=== PATIENT | male | born 1995 ===

== ENCOUNTER → 2016-07-10 | Outpatient (CLI) | payer OTHER, BC ==
--- NOTE | 2016-07-10 16:26 | US ---
Ultrasound left axilla 1557 hours. History: Palpable lump left axillary region. Rule out mass or lymphadenopathy. Findings: Ultrasound of the left axilla was performed by the technologist and by myself. The area of palpable concern corresponds with muscle fibers. Deep to this is the humeral head which causes some b ulging of the overlying muscle with the arm abducted over the head. The patient reports that this is specifically the area of concern. When compared to the right side, this is symmetric in appearance. Additional evaluation of the left axilla demonstrates a normal benign-appearing lymph node adjacent t o the axillary vessels. No lymphadenopathy is appreciated. Impression: 1. The palpable lump in the left axilla corresponds with underlying musculature that is symmetric to the right side without evidence of significant mass. 2. Benign-appearing lymph node in the left axilla adjacent to the axillary vessels. Clinical followup recommended. The results of this study were reviewed with the patient.
== END ==
LOC: FIMAGING 15:50
PROVIDERS: ATTEND Internal Medicine Infectious Disease
DX: R59.0 Localized enlarged lymph nodes (principal); R61 Generalized hyperhidrosis; R63.4 Abnormal weight loss